=== PATIENT | female | born 1980 | race Caucasian/White ===

== ENCOUNTER 2017-11-30 10:53 | Emergency (ER) | payer BC ==
[~2017-11-30] VITALS: Ht 182.9 cm; Wt 120.2 kg
[~2017-11-30 10:53] MED LIST: AMPH15TA PO; DOCU100C37 PO; DULA1.5P2 SQ; FLUC150T PO; HYDR-34 PO; IBUP-1773 PO; INSU100V6 SQ; METF500T4 PO; SIME80TA16 PO; SULF1TAB35 PO
--- NOTE | 2017-11-30 11:16 | ED Lower Extremity ---
General Chief Complaint: Lower Extremity Stated Complaint: LEFT ANKLE INJ Source: patient Exam Limitations: no limitations History of Present Illness Date Seen by Provider: Nov 30, 2017 Time Seen by Provider: 11:14 Initial Comments to ER with reports of left ankle pain. She states that occasionally her left ankle "pops out of place" she can put it back. Today,it seemed to pop out and though she was able to reduce that it is still painful and she is unable to dorsiflex or plantar flex the ankle or bear weight. Most of her pain is over the medial malleolus.She has some ankle instability following an ankle dislocation during softball many years ago and has subsequently 2 ankle reconstructions. She feels as though it is still dislocated. Onset: this morning Severity: moderate Pain/Injury Location: right ankle Method of Injury: other Modifying Factors: Worse With Movement Allergies and Home Medications Allergies Coded Allergies: chlorhexidine (Unverified Allergy, Unknown, CHLORAPREP, 06/20/17) iodine povacrylex (Unverified Allergy, Unknown, 01/06/16) isopropyl alcohol (Unverified Allergy, Unknown, 01/06/16) Home Medications Dextroamphetamine/Amphetamine 15 Mg Tablet, 15 MG PO BID PRN for ADHD, (Reported ) Dulaglutide 1.5 Mg/0.5 Ml Pen.injctr, 1.5 MG SQ WEEK, (Reported) take on Monday Ibuprofen 600 Mg Tablet, 600 MG PO Q6H PRN for PAIN-MILD Prescribed by: TINA ROSALES on 06/21/17 0838 Patient Home Medication List Home Medication List Reviewed: Yes Constitutional: see HPI EENTM: see HPI Respiratory: no symptoms reported Cardiovascular: no symptoms reported Genitourinary: no symptoms reported Musculoskeletal: see HPI Skin: no symptoms reported Psychiatric/Neurological: No Symptoms Reported Past [id number]-[id number] Hx Patient Social History Alcohol Use: Denies Use Recreational Drug Use: No Smoking Status: Never a Smoker Recent Foreign Travel: No Contact w/Someone Who Travel: No Recent Hopitalizations: No Seasonal Allergies Seasonal Allergies: Yes Past Medical History Surgeries: Yes (left ankle reconstruction x2, foot sx) Section, Gallbladder, Orthopedic Respiratory: No (has had to use an inhaler in past, ) Cardiac: No Neurological: Yes Headaches /Migraines Reproductive Disorders: Yes Gastrointestinal: No Musculoskeletal: No Endocrine: Yes Diabetes, Insulin dep Cancer: No Psychosocial: Yes ADD/ADHD Integumentary: No Blood Disorders: No Family Medical History Alzheimer's disease grandparents Asthma grandparents Dementia grandparents Diabetes mellitus 19 FATHER Parkinson's disease 19 FATHER grandparents No Pertinent Family Hx Physical Exam Vital Signs Vital Signs - First Documented 11/30/17 10:56 Temp 98.9 Pulse 92 Resp 18 B/P (MAP) 142/106 (118) Pulse Ox 96 O2 Delivery Room Air Capillary Refill : General Appearance: WD/WN, no apparent distress HEENT: PERRL/EOMI, normal ENT inspection Neck: non-tender, full range of motion Cardiovascular: regular rate, rhythm, no murmur Respiratory: no respiratory distress, no accessory muscle use Gastrointestinal: normal bowel sounds, non tender, soft Hips: bilateral hip non-tender, bilateral hip normal inspection, bilateral hip normal range of motion Legs: bilateral leg non-tender, bilateral leg normal inspection, bilateral leg normal range of motion Knees: bilateral knee non-tender, bilateral knee normal inspection, bilateral knee normal range of motion Ankles: left ankle pain, left ankle soft tissue tenderness, left ankle other ( no obvious deformity. She has a strong dorsalis pedis pulse. There is no ecchymosis.there may be some mild swelling over the lateral malleolus but this is questionable at best.) Feet: bilateral foot other ( there is a strong dorsalis pedis pulse. She is able to wiggle the toes. However the right fourth and fifth toes remain dorsiflexed when she plantar flexes the other toes. Capillary refill is brisk.) Neurologic/Psychiatric: alert, normal mood/affect, oriented x 3 Skin: normal color, warm/dry Progress/Results/Core Measures My Orders Orders - YULISSA HOLMAN APRN Ankle, Left, 3 Views (11/30/17 11:16) Vital Signs/I&O 11/30/17 11/30/17 10:56 12:00 Temp 98.9 Pulse 92 86 Resp 18 18 B/P (MAP) 142/106 (118) 107/79 Pulse Ox 96 98 O2 Delivery Room Air Departure Impression Primary Impression: Ankle joint instability Disposition: 01 HOME, SELF-CARE Condition: Stable Departure-Patient Inst. Decision time for Depature: 11:39 Referrals: VIKAS ALEJO MD (PCP/Family) Primary Care Physician Patient Instructions: NO INSTRUCTIONS GIVEN Add. Discharge Instructions: 1. Elevate the ankle as much as possible for the rest of today 2. Tylenol and Motrin for pain3. Ice pack to the ankle 4. Crutches as needed when walking. Follow-up with your orthopedic surgeon. All discharge instructions reviewed with patient and/or family. Voiced understanding. Work/School Note: Work Release Form Date Seen in the Emergency Department: Nov 30, 2017 Return to Work: Dec 01, 2017 YULISSA HOLMAN APRN Nov 30, 2017 11:16
--- NOTE | 2017-11-30 11:51 | Diagnostic Imaging Report ---
INDICATION: Left ankle pain. TIME OF EXAM: 11:53 a.m. COMPARISON: No prior studies are available for comparison. FINDINGS: Three views of the left ankle were obtained. Ankle mortise is well maintained. The talar dome is smooth. No fracture or dislocation is seen. There are small well-corticated osseous densities adjacent to the medial and lateral malleoli consistent with old avulsions. No acute abnormality is identified. IMPRESSION: Chronic changes. No acute bony abnormality is detected. Dictated by: Dictated on workstation # [id number]
[2017-11-30 12:00] VITALS: BP 107/79
== END 2017-11-30 12:06 | disposition home or self-care (01) ==
LOC: EDUNIT# 10:53 → ER 10:54
DX: M25.372 Other instability, left ankle (principal); G43.909 Migraine, unspecified, not intractable, without status migrainosus; E11.9 Type 2 diabetes mellitus without complications; F90.9 Attention-deficit hyperactivity disorder, unspecified type; Z96.662 Presence of left artificial ankle joint; Z88.8 Allergy status to other drugs, medicaments and biological substances; Z88.3 Allergy status to other anti-infective agents; Z87.59 Personal history of other complications of pregnancy, childbirth and the puerperium; X50.0XXA Overexertion from strenuous movement or load, initial encounter
CPT/HCPCS: 73610